=== PATIENT | male | born 1975 | race Caucasian/White ===

== ENCOUNTER 2021-07-04 15:54 | Emergency (ER) | payer SELFPAY ==
[2021-07-04] VITALS (12 sets, daily range): BP systolic 116–173; BP diastolic 67–93; PULSE 66–85; RESP 14–20; TEMP 36.7–37.2; O2SAT 98–100; BMI 30.8
--- NOTE | 2021-07-04 16:00 | ED_ITS ---
Documented by User: Andrew Arriola MD 07/05/21 20:02 HPI - SOB/Dyspnea General: Chief Complaint: Shortness of Breath/Dyspnea Stated Complaint: abnormal lab values Time Seen by Provider: 07/04/21 16:00 History of Present Illness: HPI Narrative: Mr. Wagner is a 45-year-old gentleman without significant diagnosed medical history presents emergency department due to low hemoglobin. He reports approximately 2-year history of frequent dark red blood in his stool. He thinks that this is from hemorrhoids as occasionally he will feel the hemorrhoids and when they become irritated they bleed more. He has not sought medical attention for this. Over the past months and worsening over the past few weeks he has noticed marked decreased exercise tolerance, increased fatigue, mild shortness of breath, and mild lightheadedness with standing. The course of the symptoms has worsened. He has not had similar episodes in the past. He denies infectious symptoms. This prompted him to present to [facility] where he had labs drawn and was told to come to the emergency department due to hemoglobin being low. He reports that he thinks his grandfather of colon cancer at approximately 65 however no significant history in the family of younger. Review of Systems General: Reports: 10 or more systems reviewed and unremarkable except in HPI and below Physical Exam Narrative: EXAM NARRATIVE: GENERAL/CONSTITUTIONAL - well-appearing. No acute distress. Eyes - PERRL, no conjunctival injection. Mild pallor. ENMT - Atraumatic external nose and ears. Moist mucous membranes NECK - supple. trachea midline CARDIOVASCULAR - regular rate and rhythm. Peripheral pulses 2+ and equal RESPIRATORY -clear to auscultation bilaterally. No retractions or accessory muscle use. ABDOMEN/GI - Nontender. Nondistended. No tenderness to percussion or evidence of peritonitis MSK - Extremities without obvious deformity or tenderness to palpation SKIN - Warm, Dry NEURO - alert and appropriately oriented. strength and sensation intact. Moves all extremities equally. PSYCH - Appropriate mood and affect Course ED course: - Patient was seen and evaluated by me at bedside - Patient placed on cardiac monitors, IV access obtained - Initial evaluation notable for no acute distress, nontoxic appearance. - Labs notable for microcytic anemia - After discussion of risks and benefits patient was consented for transfusion. -I discussed the case with both hospitalist and GI for potential of inpatient endoscopy. I recommend this option to the patient however he declined admission and wishes to follow-up with his primary care provider for outpatient endoscopy. I expressed the need for urgency regarding this matter for further evaluation. -Patient care handed off to Dr. Cabrera pending completion of transfusion Vital Signs: Vital signs: Vital Signs Temperature 98.1 F 07/04/21 23:31 Pulse Rate 71 07/04/21 23:31 Respiratory Rate 18 07/04/21 23:31 Blood Pressure 117/74 07/04/21 23:31 Pulse Oximetry 100 07/04/21 23:31 MDM - SOB/Dyspnea Medical Records: Attestation: I reviewed the patient's medical records. Lab Data: Attestation: I reviewed the patient's lab results. Labs: Lab Results 07/04/21 07/04/21 07/04/21 Range/Units 16:35 16:35 16:35 WBC 6.8 (4.0-10.0) 10^3/ uL RBC 3.71 L (4.1-5.3) 10^6/u L Hgb 6.7 L (11.7-16.6) g/dL Hct 24.9 L (42.0-52.0) % MCV 67.1 L (80-94) fl MCH 18.1 L (28.0-34.0) pg MCHC 26.9 L (30.0-36.0) g/dL RDW 20.2 H (12.1-15.1) % Plt Count 338 (130-400) 10^3/c mm MPV 10.0 (7.4-10.4) fL Neut % (Auto) 60.8 % Lymph % (Auto) 24.8 % [place] % (Auto) 11.2 % Eos % (Auto) 1.8 % Baso % (Auto) 0.7 % Neut # (Auto) 4.12 (1.8-7.7) 10^3/u L Lymph # (Auto) 1.7 (0.8-4.8) 10^3/u L [place] # (Auto) 0.8 (0.2-0.9) 10^3/u L Eos # (Auto) 0.1 (0.0-0.8) 10^3/u L Baso # (Auto) 0.1 (0.0-0.1) 10^3/u L Nucleated RBC % (a uto) 0 % Nucleated RBCs # 0.0 /100WBC PT 13.60 (12.1-14.9) SECO NDS INR 1.01 (0.8-1.2) APTT 28.7 (23.9-36.7) SECO NDS Sodium 139 (136-145) mmol/L Potassium 3.7 (3.5-5.1) mmol/L Chloride 103 (98-107) mmol/L Carbon Dioxide 24 (22-29) mmol/L Anion Gap 15.7 (5-19) BUN 10 (6-20) mg/dL Creatinine 1.0 (0.7-1.2) mg/dL GFR Calculation 80.4 L (90-130) mL/min Glucose 90 (65-115) mg/dL Calculated Osmolal ity 287 (285-295) mOsm/k g Calcium 9.1 (8.5-10.5) mg/dL Total Bilirubin 0.2 (0.15-1.2) mg/dL AST 24 (0-40) U/L ALT 26 (0-41) U/L Alkaline Phosphata se 61 (40-130) IU/L Total Protein 7.2 (6.6-8.7) g/dL Albumin 4.3 (3.5-5.2) g/dL Globulin 2.9 (1.3-4.6) g/dL Blood Type Rho(D) Type Antibody Screen Crossmatch 07/04/21 Range/Units 16:35 WBC (4.0-10.0) 10^3/ uL RBC (4.1-5.3) 10^6/u L Hgb (11.7-16.6) g/dL Hct (42.0-52.0) % MCV (80-94) fl MCH (28.0-34.0) pg MCHC (30.0-36.0) g/dL RDW (12.1-15.1) % Plt Count (130-400) 10^3/c mm MPV (7.4-10.4) fL Neut % (Auto) % Lymph % (Auto) % [place] % (Auto) % Eos % (Auto) % Baso % (Auto) % Neut # (Auto) (1.8-7.7) 10^3/u L Lymph # (Auto) (0.8-4.8) 10^3/u L [place] # (Auto) (0.2-0.9) 10^3/u L Eos # (Auto) (0.0-0.8) 10^3/u L Baso # (Auto) (0.0-0.1) 10^3/u L Nucleated RBC % (a uto) % Nucleated RBCs # /100WBC PT (12.1-14.9) SECO NDS INR (0.8-1.2) APTT (23.9-36.7) SECO NDS Sodium (136-145) mmol/L Potassium (3.5-5.1) mmol/L Chloride (98-107) mmol/L Carbon Dioxide (22-29) mmol/L Anion Gap (5-19) BUN (6-20) mg/dL Creatinine (0.7-1.2) mg/dL GFR Calculation (90-130) mL/min Glucose (65-115) mg/dL Calculated Osmolal ity (285-295) mOsm/k g Calcium (8.5-10.5) mg/dL Total Bilirubin (0.15-1.2) mg/dL AST (0-40) U/L ALT (0-41) U/L Alkaline Phosphata se (40-130) IU/L Total Protein (6.6-8.7) g/dL Albumin (3.5-5.2) g/dL Globulin (1.3-4.6) g/dL Blood Type A Negative Rho(D) Type Negative Antibody Screen Negative Crossmatch See Detail Discharge Plan Discharge Patient Disposition: Home Clinical Impression: Symptomatic anemia Condition: Stable Prescriptions: No Action Vitamin C 250 mg Tablet 250 mg PO DAILY RF: 0 zinc 50 mg Tablet 50 mg PO DAILY RF: 0 Vitamin D3 125 mcg (5,000 unit) Tablet 125 mcg PO DAILY RF: 0 Men's One Daily 400-20-300 mcg Tablet 1 tab PO DAILY RF: 0 Discharge Orders: Discharge ED (Routine); Ordered 07/04/21 Ordered By: Sophy Cabrera Referrals: Bob Huynh MD [Primary Care Provider] - 1-3 days Discharge Diet: Usual diet Discharge Activity: Resume usual activity Patient Instructions: Gastrointestinal Bleeding (ED), Anemia (ED), Opioid Safety Activity Restrictions/Additional Instructions: Thank you for visiting the emergency department. You were seen and evaluated for symptomatic anemia likely secondary to GI bleed. Please followup with your PCP. We recommend urgent colonoscopy. Please return for anything that you are concerned about and feel needs ED evaluation. Coding Level of Care Code ED Air Brake Adjuster for Chg Fwd Documented by User: Sophy Cabrera MD 07/04/21 23:41 HPI - SOB/Dyspnea General: Chief Complaint: Shortness of Breath/Dyspnea Stated Complaint: abnormal lab values Time Seen by Provider: 07/04/21 16:00 Course Vital Signs: Vital signs: Vital Signs Temperature 98.1 F 07/04/21 23:31 Pulse Rate 71 07/04/21 23:31 Respiratory Rate 18 07/04/21 23:31 Blood Pressure 117/74 07/04/21 23:31 Pulse Oximetry 100 07/04/21 23:31 MDM - SOB/Dyspnea MDM Narrative: Medical decision making narrative: Patient presents here with anemia I took him over from Dr. Arriola. Dr. Arriola had spoke to patient at length and recommended admission and patient refused that he like to go home after transfusions here and have his own physician do colonoscopy in a week. I spoke to patient as well he wanted a second unit transfused and will give him a second unit. I did offer admission again and he refused. His blood pressure here has been stable. I informed if his bleeding worsens or he gets weak again he is return immediately. He understands agrees to plan. Lab Data: Labs: Lab Results 07/04/21 07/04/21 07/04/21 Range/Units 16:35 16:35 16:35 WBC 6.8 (4.0-10.0) 10^3/ uL RBC 3.71 L (4.1-5.3) 10^6/u L Hgb 6.7 L (11.7-16.6) g/dL Hct 24.9 L (42.0-52.0) % MCV 67.1 L (80-94) fl MCH 18.1 L (28.0-34.0) pg MCHC 26.9 L (30.0-36.0) g/dL RDW 20.2 H (12.1-15.1) % Plt Count 338 (130-400) 10^3/c mm MPV 10.0 (7.4-10.4) fL Neut % (Auto) 60.8 % Lymph % (Auto) 24.8 % [place] % (Auto) 11.2 % Eos % (Auto) 1.8 % Baso % (Auto) 0.7 % Neut # (Auto) 4.12 (1.8-7.7) 10^3/u L Lymph # (Auto) 1.7 (0.8-4.8) 10^3/u L [place] # (Auto) 0.8 (0.2-0.9) 10^3/u L Eos # (Auto) 0.1 (0.0-0.8) 10^3/u L Baso # (Auto) 0.1 (0.0-0.1) 10^3/u L Nucleated RBC % (a uto) 0 % Nucleated RBCs # 0.0 /100WBC PT 13.60 (12.1-14.9) SECO NDS INR 1.01 (0.8-1.2) APTT 28.7 (23.9-36.7) SECO NDS Sodium 139 (136-145) mmol/L Potassium 3.7 (3.5-5.1) mmol/L Chloride 103 (98-107) mmol/L Carbon Dioxide 24 (22-29) mmol/L Anion Gap 15.7 (5-19) BUN 10 (6-20) mg/dL Creatinine 1.0 (0.7-1.2) mg/dL GFR Calculation 80.4 L (90-130) mL/min Glucose 90 (65-115) mg/dL Calculated Osmolal ity 287 (285-295) mOsm/k g Calcium 9.1 (8.5-10.5) mg/dL Total Bilirubin 0.2 (0.15-1.2) mg/dL AST 24 (0-40) U/L ALT 26 (0-41) U/L Alkaline Phosphata se 61 (40-130) IU/L Total Protein 7.2 (6.6-8.7) g/dL Albumin 4.3 (3.5-5.2) g/dL Globulin 2.9 (1.3-4.6) g/dL Blood Type Rho(D) Type Antibody Screen Crossmatch 07/04/21 Range/Units 16:35 WBC (4.0-10.0) 10^3/ uL RBC (4.1-5.3) 10^6/u L Hgb (11.7-16.6) g/dL Hct (42.0-52.0) % MCV (80-94) fl MCH (28.0-34.0) pg MCHC (30.0-36.0) g/dL RDW (12.1-15.1) % Plt Count (130-400) 10^3/c mm MPV (7.4-10.4) fL Neut % (Auto) % Lymph % (Auto) % [place] % (Auto) % Eos % (Auto) % Baso % (Auto) % Neut # (Auto) (1.8-7.7) 10^3/u L Lymph # (Auto) (0.8-4.8) 10^3/u L [place] # (Auto) (0.2-0.9) 10^3/u L Eos # (Auto) (0.0-0.8) 10^3/u L Baso # (Auto) (0.0-0.1) 10^3/u L Nucleated RBC % (a uto) % Nucleated RBCs # /100WBC PT (12.1-14.9) SECO NDS INR (0.8-1.2) APTT (23.9-36.7) SECO NDS Sodium (136-145) mmol/L Potassium (3.5-5.1) mmol/L Chloride (98-107) mmol/L Carbon Dioxide (22-29) mmol/L Anion Gap (5-19) BUN (6-20) mg/dL Creatinine (0.7-1.2) mg/dL GFR Calculation (90-130) mL/min Glucose (65-115) mg/dL Calculated Osmolal ity (285-295) mOsm/k g Calcium (8.5-10.5) mg/dL Total Bilirubin (0.15-1.2) mg/dL AST (0-40) U/L ALT (0-41) U/L Alkaline Phosphata se (40-130) IU/L Total Protein (6.6-8.7) g/dL Albumin (3.5-5.2) g/dL Globulin (1.3-4.6) g/dL Blood Type A Negative Rho(D) Type Negative Antibody Screen Negative Crossmatch See Detail Discharge Plan Discharge Patient Disposition: Home Clinical Impression: Symptomatic anemia Condition: Stable Prescriptions: No Action Vitamin C 250 mg Tablet 250 mg PO DAILY RF: 0 zinc 50 mg Tablet 50 mg PO DAILY RF: 0 Vitamin D3 125 mcg (5,000 unit) Tablet 125 mcg PO DAILY RF: 0 Men's One Daily 400-20-300 mcg Tablet 1 tab PO DAILY RF: 0 Discharge Orders: Discharge ED (Routine); Ordered 07/04/21 Ordered By: Sophy Cabrera Referrals: Bob Huynh MD [Primary Care Provider] - 1-3 days Discharge Diet: Usual diet Discharge Activity: Resume usual activity Patient Instructions: Gastrointestinal Bleeding (ED), Anemia (ED), Opioid Safety Activity Restrictions/Additional Instructions: Thank you for visiting the emergency department. You were seen and evaluated for symptomatic anemia likely secondary to GI bleed. Please followup with your PCP. We recommend urgent colonoscopy. Please return for anything that you are concerned about and feel needs ED evaluation. Coding Level of Care Code ED Air Brake Adjuster for Purvi Altamirano
[2021-07-04 16:48] LABS: Basophils # 0.1 10^3/uL (0.0-0.1); Basophils % 0.7 %; Eosinophils # 0.1 10^3/uL (0.0-0.8); Eosinophils % 1.8 %; Hematocrit 24.9 % (42.0-52.0); Hemoglobin 6.7 g/dL (11.7-16.6); Lymphocytes # 1.7 10^3/uL (0.8-4.8); Lymphocytes % 24.8 %; Mean Corpuscular HGB Conc 26.9 g/dL (30.0-36.0); Mean Corpuscular Hemoglobin 18.1 pg (28.0-34.0); Mean Corpuscular Volume 67.1 fl (80-94); Monocytes # 0.8 10^3/uL (0.2-0.9); Monocytes % 11.2 %; Neutrophils # 4.12 10^3/uL (1.8-7.7); Neutrophils % 60.8 %; Nucleated Red Blood Cells % 0 %; Platelet Count 338 10^3/cmm (130-400); Red Blood Count 3.71 10^6/uL (4.1-5.3); Red Cell Distribution Width 20.2 % (12.1-15.1); White Blood Count 6.8 10^3/uL (4.0-10.0)
[2021-07-04 16:54] LABS: INR 1.01 (0.8-1.2)
[2021-07-04 16:55] LABS: Partial Thromboplastin Time 28.7 SECONDS (23.9-36.7)
[2021-07-04 17:36] LABS: Alanine Aminotransferase 26 U/L (0-41); Albumin Level 4.3 g/dL (3.5-5.2); Alkaline Phosphatase 61 IU/L (40-130); Anion Gap 15.7 (5-19); Aspartate Amino Transferase 24 U/L (0-40); Blood Urea Nitrogen 10 mg/dL (6-20); Calcium 9.1 mg/dL (8.5-10.5); Carbon Dioxide 24 mmol/L (22-29); Chloride 103 mmol/L (98-107); Globulin 2.9 g/dL (1.3-4.6); Glomerular Filtration Rate 80.4 mL/min (90-130); Glucose 90 mg/dL (65-115); Osmolality Calculated 287 mOsm/kg (285-295); Potassium 3.7 mmol/L (3.5-5.1); Sodium 139 mmol/L (136-145); Total Bilirubin 0.2 mg/dL (0.15-1.2); Total Protein 7.2 g/dL (6.6-8.7)
[2021-07-04] MEDS: sodium chloride 0.9% 100 mL Bag 50 ML IV (18:44)
== END 2021-07-04 23:34 | disposition home or self-care (01) ==
PROVIDERS: Emergency Medicine; Emergency Provider Emergency Medicine; PCP Family Medicine
DX: D64.9 Anemia, unspecified (principal)
CPT/HCPCS: 36430; 80053; 85025; 85610; 85730; 86850; 86900; 86920; 99284; P9016